=== PATIENT | male | born 1980 | race Caucasian/White ===

== ENCOUNTER 2021-06-09 15:54 | Emergency (ER) | payer MEDICAID ==
[~2021-06-09] VITALS: Ht 170.2 cm; Wt 68.0 kg
[2021-06-09 16:55] LABS: BILIRUBIN,URINE NEGATIVE (NEGATIVE); COLOR,URINE YELLOW (YELLOW); LEUKOCYTE ESTERASE ,URINE NEGATIVE (NEGATIVE); NITRITE, URINE NEGATIVE (NEGATIVE); PH,URINE 6.5 (5.0-8.0); PROTEIN,URINE NEGATIVE (NEGATIVE); UGLUCOSE NEGATIVE (NEGATIVE); UROBILINOGEN,URINE 0.2 EU/dL (0.2)
--- NOTE | 2021-06-09 17:00 | NUR ---
THE PATIENT PRESENTED TO ER FOR DYSURIA X 1 MONTH, FINISHED ANTIBIOTICS YESTERDAY W/ NO RELIEF. RATES PAIN 5/10. NO BLADDER DISTENSION NOTED. WILL CONTINUE TO MONITOR THE PATIENT.
--- NOTE | 2021-06-09 18:35 | NUR ---
Patient discharged to [facility] housing in stable condition. Written and verbal after care instructions given. Patient verbalizes understanding of instruction.
[2021-06-09 18:36] VITALS: BP 145/93
== END 2021-06-09 18:36 | disposition home or self-care (01) ==
LOC: ER 16:07
DX: R30.0 Dysuria (principal); R10.30 Lower abdominal pain, unspecified; F17.200 Nicotine dependence, unspecified, uncomplicated
CPT/HCPCS: 87086-TC